=== PATIENT | male | born 1955 | race Caucasian/White ===

== ENCOUNTER 2019-02-13 15:17 | Inpatient (IN) | payer BC ==
[~2019-02-13] VITALS: Ht 180.3 cm; Wt 100.8 kg
[2019-02-13] VITALS (7 sets, daily range): BP systolic 114–141; BP diastolic 68–82
[~2019-02-13 15:17] MED LIST: AUGMENTIN 875 M1 TAB PO; DAYPRO600 M1 PO; MOTRIN800 MG PO; PROTONIX40 MG PO; REGLAN10 M1 PO; ROBAXIN750 MG PO; VICODIN 500 MG-1 TAB PO
[2019-02-13 15:41] LABS: BASO # 0.1 10*3/uL (0.0-0.1); BASO % 0.4 % (0.0-1.0); EOS # 0.3 10*3/uL (0.0-0.4); EOS % 2.4 % (1.0-4.0); HEMATOCRIT 47.4 % (42.0-52.0); HEMOGLOBIN 15.7 g/dl (14.0-18.0); LYMPH # 2.1 10*3/uL (1.3-4.4); LYMPH % 15.3 % (27.0-41.0); MEAN CELL VOLUME 91.9 fl (80.0-94.0); MEAN CORPUSCULAR HGB 30.4 pg (27.0-31.0); MEAN CORPUSCULAR HGB CONC 33.1 g/dl (33.0-37.0); MEAN PLATELET VOLUME 10.5 fl (9.6-12.3); MONO # 1.2 10*3/uL (0.1-1.0); MONO % 9.1 % (3.0-9.0); NEUT # 9.8 10*3/uL (2.3-7.9); NEUT % 72.4 % (47.0-73.0); PLATELET COUNT AUTOMATED 330 10*3/uL (130-400); RED BLOOD COUNT 5.16 10*6/uL (4.50-5.90); RED CELL DISTRI WIDTH 12.4 % (0-14.5); WHITE BLOOD COUNT 13.6 10*3/uL (4.8-10.8)
[2019-02-13 15:55] LABS: INTERNATIONAL NORM RATIO 0.9 (2.0-3.5)
[2019-02-13 16:00] LABS: ALBUMIN 3.3 gm/dl (3.1-4.5); ALKALINE PHOSPHATASE 101 U/L (45-117); BUN 8 mg/dl (7-24); CHLORIDE 110 mmol/L (98-107); CREATININE 0.71 mg/dL (0.70-1.30); POTASSIUM 3.6 mmol/L (3.5-5.1); SGOT/AST 16 IU/L (3-35); SGPT/ALT 38 U/L (12-78); SODIUM 140 mmol/L (136-145); TOTAL PROTEIN 6.8 gm/dL (6.4-8.2)
[2019-02-13 16:05] LABS: TROPONIN I < 0.015 ng/ml (<0.045)
[2019-02-13 16:56] LABS: BILIRUBIN NEGATIVE (NEGATIVE); BLOOD NEGATIVE (NEGATIVE); CLARITY CLEAR (CLEAR); COLOR YELLOW (YELLOW); GLUCOSE NEGATIVE (NEGATIVE); KETONE NEGATIVE (NEGATIVE); LEUKO ESTERASE NEGATIVE (NEGATIVE); NITRITE NEGATIVE (NEGATIVE); UROBILINOGEN 0.2 E.U./dl (0.2-1.0)
[2019-02-13 17:25] LABS: MUCOUS 1+
--- NOTE | 2019-02-13 18:55 | NUR ---
A 63, admitted to , under the services of SAVANNAH Prince DO with a diagnosis of ABDOMINAL PAIN, CHEST PAIN. Chief complaint is CHEST PAIN AND ABD PAIN. Patient arrived via bed from ER. Monitor applied. Initial assessment completed. Vital signs taken and recorded. SAVANNAH PRINCE DO notified of admission to the unit. Orders received. See assessment for past medical history, medications and allergies. Patient and/or family oriented to unit. [address] visitation policy reviewed. Clothing/patient valuable form completed. NURYS BURNETT R
--- NOTE | 2019-02-13 19:23 | NUR ---
CALLED DR. RIOC AWARE OF ADMISSION AND PT IN ROOM. MEDICATIONS UPDATED.
[2019-02-13] MEDS ORDERED: TYLENOL EXTRA500 M2 PO (19:24)
[2019-02-13] MEDS ORDERED: IBU-200200 MG PO (19:25)
--- NOTE | 2019-02-13 19:45 | NUR ---
DR. CAMPA REMINDED THAT ADMISSION ORDERS WERE NEEDED. GABRIELA SANCHEZ RN
--- NOTE | 2019-02-13 21:09 | NUR ---
ROUTINE CARDIAC CONSULT - LEFT MESSAGE ON ANSWERING SERVICE REGARDING CONSULT FOR DR. PAGE. GABRIELA SANCHEZ, RN
[2019-02-14] VITALS: BP 113/76
[2019-02-14 06:08] LABS: BASO # 0.1 10*3/uL (0.0-0.1); BASO % 0.5 % (0.0-1.0); EOS # 0.3 10*3/uL (0.0-0.4); EOS % 2.6 % (1.0-4.0); HEMATOCRIT 46.4 % (42.0-52.0); HEMOGLOBIN 15.3 g/dl (14.0-18.0); LYMPH # 1.7 10*3/uL (1.3-4.4); LYMPH % 17.5 % (27.0-41.0); MEAN CELL VOLUME 91.3 fl (80.0-94.0); MEAN CORPUSCULAR HGB 30.1 pg (27.0-31.0); MEAN PLATELET VOLUME 10.7 fl (9.6-12.3); MONO # 0.8 10*3/uL (0.1-1.0); MONO % 7.8 % (3.0-9.0); NEUT # 6.9 10*3/uL (2.3-7.9); NEUT % 71.2 % (47.0-73.0); PLATELET COUNT AUTOMATED 334 10*3/uL (130-400); RED BLOOD COUNT 5.08 10*6/uL (4.50-5.90); RED CELL DISTRI WIDTH 12.4 % (0-14.5); WHITE BLOOD COUNT 9.7 10*3/uL (4.8-10.8)
[2019-02-14 06:35] LABS: BUN 9 mg/dl (7-24); CHLORIDE 108 mmol/L (98-107); CHOLESTEROL 164 mg/dL (<200); FREE T4 0.83 ng/dl (0.76-1.46); HDL CHOLESTEROL 28 mg/dl (40-60); LDL CHOLESTEROL 86 mg/dL (9-159); PHOSPHOROUS 2.8 mg/dL (2.5-4.9); POTASSIUM 3.5 mmol/L (3.5-5.1); SODIUM 142 mmol/L (136-145); TRIGLYCERIDES 249 mg/dl (<150); VLDL CHOLESTEROL 50 mg/dL (6-40)
--- NOTE | 2019-02-14 06:35 | NUR ---
PER DR. CAMPA, PT CAN HAVE REGULAR DIET AFTER STRESS TEST.
[2019-02-14 08:11] LABS: VITAMIN D, 25-HYDROXY 6.3 ng/mL (30-100)
--- NOTE | 2019-02-14 09:00 | NUR ---
Improvement Specialist in to talk to patient. Patient states lives at home with brother. There are few steps in the home. Physician: none at present [facility]acy: [facility] health services: none Patient's level of ADLs: INDEPENDENT Patient has working utilities: all working DME: none Follow-up physician's appointment after d/c: will be made by hospitalist nurse director upon discharge Does patient want to access PORTAL?: no Discharge plan discussed with patient, he states he lives at home with brother, he is independent in adls and ambulation, works, drives, he states he will return home when medically stable and denies any home needs, patient stated he doesn't have a doctor at this time and will decide who he would like to follow up with. BLAIR ROSALES
--- NOTE | 2019-02-14 09:40 | NUR ---
PT OFF OF FLOOR AT THIS TIME FOR STRESS TEST.
--- NOTE | 2019-02-14 10:05 | NUR ---
DR FLOWERS ASKS THIS NURSE TO CALL [facility] AND REQUEST FOR NURSES TO NOT FEED PATIENT AFTER STRESS TEST. PHYSICIAN ALSO REQUESTS TO BE CALLED WHEN PATIENT RETURNS TO FLOOR.
--- NOTE | 2019-02-14 10:22 | NUR ---
WILL CATCH PATIENT UP ON AM MEDICATIONS ONCE HE RETURNS TO FLOOR FROM STRESS TEST.
--- NOTE | 2019-02-14 10:39 | NUR ---
[facility] CALLS THIS NURSE AND STATES THAT PATIENT IS C/O SEVERE ABDOMINAL PAIN. CARDIAC NURSE REQUESTS MEDICATION FOR PATIENT'S PAIN. MORPHINE 2 MG TAKEN DOWN TO 1ST FLOOR AND ADMINISTERED VIA IV TO PATIENT. UPON ARRIVAL TO [facility], PATIENT IS FOUND TO BE VOMITING CLEAR EMESIS INTO AN EMESIS BAG. ZOFRAN 4 MG VIA IV IS ALSO ADMINISTERED AT THIS TIME TO PATIENT. WILL MONITOR FOR EFFECTIVENESS. PT SITTING UP IN CHAIR WITH CARDIAC NURSES. NURSES STATE THAT THEY WILL MONITOR PATIENT.
--- NOTE | 2019-02-14 10:44 | NUR ---
INFORMED CONSENT SIGNED FOR LEXISCAN STRESS TEST WITH DR. BUSH. RESTING EKG NSR HR 103. BP 130/82. PULSE OX 98% AND LUNGS CLEAR. COMPLETED ONE MINUTE OF LEXISCAN PROTOCOL RECEIVING LEXISCAN 0.4MG IV OVER 10 SEC[address]DS[address] NO ARRHYTHMIAS OR ST CHANGES NOTED. PT C/O NAUSEA, CHEST TIGHTNESS AND HAD A 150CC CLEAR EMESIS. LAST RECOVERY HR 132, BP 140/58. ZOFRAN AND MORPHONE ADMINISTERED BY FLOOR RN. WAITING NUCLEAR SCANNING IN STABLE CONDITION.
--- NOTE | 2019-02-14 12:06 | NUR ---
NOTIFIED DR ROOT, WORKING WITH DR FLOWERS, THAT PT HAS RETURNED TO FLOOR.
--- NOTE | 2019-02-14 13:51 | NUR ---
NOTIFIED DR GALVAN OF CONSULT. DR GALVAN MADE AWARE OF ABDOMEN CT RESULTS AND THAT PT IS CURRENTLY HAVING ULTRASOUND DOPPLER ABDOMEN COMPLETE AT THIS TIME. PHYSICIAN STATES THAT HE WOULD LIKE CALL BACK WHEN ULTRASOUND RESULTS ARE AVAILABLE. WILL NOTIFY PATIENT.
--- NOTE | 2019-02-14 15:04 | NUR ---
DR GALVAN NOTIFIED OF ABDOMINAL ULTRASOUND RESULTS. NEW ORDER RECEIVED FOR EGD TODAY WITH DR GALVAN. WILL NOTIFY PATIENT.
--- NOTE | 2019-02-14 15:07 | NUR ---
PT GIVEN MORPHINE 2MG IV FOR PAIN TO ABDOMEN. WILL MONITOR FOR EFFECTIVENESS. PT LYING IN BED, CALL LIGHT IN REACH.
[2019-02-14 16:00] VITALS: BP 125/80
[2019-02-14 18:00] VITALS: BP 102/61
[2019-02-14 18:15] VITALS: BP 104/61
[2019-02-14 18:30] VITALS: BP 111/64
[2019-02-14 20:00] VITALS: BP 114/81
--- NOTE | 2019-02-14 20:16 | NUR ---
PT. GIVEN MORPHINE ORDERED FOR ABD PAIN AT 1950, CURRENTLY SLEEPING, MORPHINE EFFECTIVE FOR PAIN.
[2019-02-15] VITALS: BP 109/76
--- NOTE | 2019-02-15 00:32 | NUR ---
PT. GIVEN MORPHINE ORDERED FOR ABD PAIN.
--- NOTE | 2019-02-15 01:21 | NUR ---
PT. SLEEPING, MORPHINE EFFECTIVE FOR PAIN.
--- NOTE | 2019-02-15 05:12 | NUR ---
MORPHINE GIVEN FOR ABD PAIN ORDERED PER PT REQUEST.
--- NOTE | 2019-02-15 06:21 | NUR ---
PT. STATED MORPHINE EFFECTIVE FOR PAIN.
[2019-02-15 08:00] VITALS: BP 109/67
--- NOTE | 2019-02-15 09:00 | NUR ---
case management visits with patient, he states he will return home when medically stable and will be returning to work, no home needs at this time
--- NOTE | 2019-02-15 11:43 | NUR ---
Another Multi-Disciplinary Team meeting was held on 02/15/19, for the purpose of discharge planning. The patient was referred to the following services for follow-up: patient will return home when finished treating stomach ulcers BLAIR ROSALES
[2019-02-15 12:00] VITALS: BP 121/76
[2019-02-15 20:00] VITALS: BP 107/64
[2019-02-16] VITALS: BP 99/74
--- NOTE | 2019-02-16 01:27 | NUR ---
PRN NORCO GIVEN FOR COMPLAINTS OF PAIN IN ABD RATED A 5/10. WILL MONITOR FOR EFFECTIVENESS. CONTINUE TO MONITOR THE PT.
--- NOTE | 2019-02-16 02:20 | NUR ---
RE-EVALAUTED AT THIS TIME. PT REPORTS PRN NORCO EFFECTIVE. CONTINUE TO MONITOR THE PT.
[2019-02-16 08:00] VITALS: BP 107/72
--- NOTE | 2019-02-16 09:00 | NUR ---
case management visits with patient, he states he could possibly be discharged to home today, patient denies any home needs
[2019-02-16 11:55] VITALS: BP 125/70
[2019-02-16] MEDS ORDERED: PANTOPRAZOLE SO40 MG PO (12:01)
[2019-02-16] MEDS ORDERED: Vitamin D PO (12:01)
[2019-02-16] MEDS ORDERED: Carafate1 GM PO (12:01)
--- NOTE | 2019-02-16 14:40 | NUR ---
Discharge instructions reviewed with patient/family. Patient receptive and verbalizes understanding. Follow-up care arranged. Written instructions given to patient/family. AIME LOMBARDO
== END 2019-02-16 14:40 | disposition home or self-care (01) | DRG 384 ==
LOC: ED 15:17 → 4E 18:24 → EDHOLD 18:24 → 4E 18:46
PROVIDERS: Emergency Medicine; Internal Medicine; ADMIT Internal Medicine
PROC: 0DB98ZX Excision of Duodenum, Via Natural or Artificial Opening Endoscopic, Diagnostic (ICD-10-PCS; principal; 2019-02-14)
PROC: 0DB48ZX Excision of Esophagogastric Junction, Via Natural or Artificial Opening Endoscopic, Diagnostic (ICD-10-PCS; principal; 2019-02-14)
PROC: 4A02XM4 Measurement of Cardiac Total Activity, External Approach (ICD-10-PCS; principal; 2019-02-14)
PROC: 0DB68ZX Excision of Stomach, Via Natural or Artificial Opening Endoscopic, Diagnostic (ICD-10-PCS; principal; 2019-02-14)
PROC: 3E033HZ Introduction of Radioactive Substance into Peripheral Vein, Percutaneous Approach (ICD-10-PCS; principal; 2019-02-14)
DX: K26.9 Duodenal ulcer, unspecified as acute or chronic, without hemorrhage or perforation (principal); K80.20 Calculus of gallbladder without cholecystitis without obstruction; K29.00 Acute gastritis without bleeding; K28.9 Gastrojejunal ulcer, unspecified as acute or chronic, without hemorrhage or perforation; E78.1 Pure hyperglyceridemia; E11.65 Type 2 diabetes mellitus with hyperglycemia; E55.9 Vitamin D deficiency, unspecified; E87.8 Other disorders of electrolyte and fluid balance, not elsewhere classified; R19.7 Diarrhea, unspecified; K21.9 Gastro-esophageal reflux disease without esophagitis; K76.0 Fatty (change of) liver, not elsewhere classified; K29.80 Duodenitis without bleeding; Z91.018 Allergy to other foods; Z91.040 Latex allergy status; Z82.49 Family history of ischemic heart disease and other diseases of the circulatory system; Z79.899 Other long term (current) drug therapy

== ENCOUNTER → 2019-02-24 | Outpatient (CLI) | payer BC ==
[~2019-02-24] MED LIST changes: +Carafate1 GM PO; +IBU-200200 MG PO; +PANTOPRAZOLE SO40 MG PO; +TYLENOL EXTRA500 M2 PO; +Vitamin D PO
== END | disposition home or self-care (01) ==
LOC: RESCLI 01:11
DX: Z12.11 Encounter for screening for malignant neoplasm of colon (principal); K21.9 Gastro-esophageal reflux disease without esophagitis; K25.7 Chronic gastric ulcer without hemorrhage or perforation; E78.5 Hyperlipidemia, unspecified; E66.09 Other obesity due to excess calories; E11.9 Type 2 diabetes mellitus without complications; E55.9 Vitamin D deficiency, unspecified; Z79.899 Other long term (current) drug therapy; Z88.8 Allergy status to other drugs, medicaments and biological substances

== ENCOUNTER → 2019-04-25 | Outpatient (CLI) | payer BC | END | disposition home or self-care (01) | LOC: LAB 08:32 | DX: Z12.5 Encounter for screening for malignant neoplasm of prostate (principal); E11.9 Type 2 diabetes mellitus without complications ==

== ENCOUNTER → 2019-05-06 | Outpatient (CLI) | payer BC | END | disposition home or self-care (01) | LOC: RESCLI 08:39 | DX: M25.562 Pain in left knee (principal); K21.9 Gastro-esophageal reflux disease without esophagitis; K25.7 Chronic gastric ulcer without hemorrhage or perforation; E78.5 Hyperlipidemia, unspecified; E66.09 Other obesity due to excess calories; E11.9 Type 2 diabetes mellitus without complications; E55.9 Vitamin D deficiency, unspecified; G89.29 Other chronic pain; Z79.899 Other long term (current) drug therapy; Z87.891 Personal history of nicotine dependence ==

== ENCOUNTER → 2020-08-10 | Outpatient (CLI) | payer BC ==
[2020-08-10 10:07] LABS: BASO # 0.1 10*3/uL (0.0-0.1); BASO % 0.6 % (0.0-1.0); EOS # 0.3 10*3/uL (0.0-0.4); EOS % 3.5 % (1.0-4.0); HEMATOCRIT 43.4 % (42.0-52.0); LYMPH # 1.7 10*3/uL (1.3-4.4); LYMPH % 20.7 % (27.0-41.0); MEAN CELL VOLUME 92.9 fl (80.0-94.0); MEAN CORPUSCULAR HGB 29.6 pg (27.0-31.0); MEAN CORPUSCULAR HGB CONC 31.8 g/dl (33.0-37.0); MEAN PLATELET VOLUME 10.9 fl (9.6-12.3); MONO # 0.8 10*3/uL (0.1-1.0); MONO % 10.4 % (3.0-9.0); NEUT # 5.1 10*3/uL (2.3-7.9); NEUT % 63.7 % (47.0-73.0); PLATELET COUNT AUTOMATED 296 10*3/uL (130-400); RED BLOOD COUNT 4.67 10*6/uL (4.50-5.90); RED CELL DISTRI WIDTH 12.8 % (0-14.5)
[2020-08-10 10:38] LABS: ALBUMIN 3.3 gm/dl (3.1-4.5); ALKALINE PHOSPHATASE 98 U/L (45-117); BUN 8 mg/dl (7-24); CHLORIDE 109 mmol/L (98-107); CHOLESTEROL 127 mg/dL (<200); CREATININE 0.74 mg/dL (0.70-1.30); HDL CHOLESTEROL 33 mg/dl (40-60); LDL CHOLESTEROL 54 mg/dL (9-159); POTASSIUM 3.8 mmol/L (3.5-5.1); SGOT/AST 24 IU/L (3-35); SGPT/ALT 41 U/L (12-78); SODIUM 141 mmol/L (136-145); TOTAL PROTEIN 6.6 gm/dL (6.4-8.2); TRIGLYCERIDES 200 mg/dl (<150); VLDL CHOLESTEROL 40 mg/dL (6-40)
== END | disposition home or self-care (01) ==
LOC: RESCLI 00:56
PROVIDERS: Internal Medicine; ATTEND Family Medicine
DX: E11.65 Type 2 diabetes mellitus with hyperglycemia (principal); E78.5 Hyperlipidemia, unspecified; B35.1 Tinea unguium; D17.22 Benign lipomatous neoplasm of skin and subcutaneous tissue of left arm; I10 Essential (primary) hypertension; Z87.11 Personal history of peptic ulcer disease; Z68.35 Body mass index [BMI] 35.0-35.9, adult; Z79.84 Long term (current) use of oral hypoglycemic drugs; Z79.899 Other long term (current) drug therapy

== ENCOUNTER 2020-09-03 19:22 | Inpatient (IN) | payer BC ==
[~2020-09-03] VITALS: Ht 180.3 cm; Wt 113.4 kg
[2020-09-03 20:10] VITALS: BP 146/95
[2020-09-03 20:51] LABS: HEMATOCRIT 51.5 % (42.0-52.0); MEAN CELL VOLUME 87.7 fl (80.0-94.0); MEAN CORPUSCULAR HGB 29.3 pg (27.0-31.0); MEAN CORPUSCULAR HGB CONC 33.4 g/dl (33.0-37.0); MEAN PLATELET VOLUME 10.5 fl (9.6-12.3); PLATELET COUNT AUTOMATED 472 10*3/uL (130-400); RED BLOOD COUNT 5.87 10*6/uL (4.50-5.90); RED CELL DISTRI WIDTH 12.9 % (0-14.5); WHITE BLOOD COUNT 23.6 10*3/uL (4.8-10.8)
[2020-09-03 21:04] LABS: ALBUMIN 3.5 gm/dl (3.1-4.5); ALKALINE PHOSPHATASE 109 U/L (45-117); BUN 19 mg/dl (7-24); CHLORIDE 103 mmol/L (98-107); CREATININE 0.94 mg/dL (0.70-1.30); LIPASE 78 U/L (73-393); POTASSIUM 3.2 mmol/L (3.5-5.1); SGOT/AST 9 IU/L (3-35); SGPT/ALT 21 U/L (12-78); SODIUM 135 mmol/L (136-145); TOTAL PROTEIN 7.2 gm/dL (6.4-8.2)
[2020-09-03 21:14] LABS: PLATELET SUFFICIENCY HIGH (NORMAL); TOTAL CELLS COUNTED 100 #CELLS
[2020-09-04 00:06] LABS: BILIRUBIN Negative (Negative); BLOOD Negative (Negative); CLARITY Clear (Clear); COLOR Yellow (Yellow); GLUCOSE Negative (Negative); KETONE Negative (Negative); LEUKO ESTERASE Negative (Negative); NITRITE Negative (Negative); PH 5.5 (4.5-8.0); SPECIFIC GRAVITY >= 1.030 (1.001-1.030); UROBILINOGEN 0.2 E.U./dl (0.0-1.0)
[2020-09-04 00:33] LABS: RBC 0-2 rbc/hpf (0-2); WBC 0-2 wbc/hpf (0-5)
[2020-09-04 03:30] VITALS: BP 142/86
[2020-09-04 05:24] LABS: ALBUMIN 2.7 gm/dl (3.1-4.5); ALKALINE PHOSPHATASE 83 U/L (45-117); BUN 16 mg/dl (7-24); CHLORIDE 103 mmol/L (98-107); CHOLESTEROL 101 mg/dL (<200); CREATININE 0.88 mg/dL (0.70-1.30); FREE T4 0.86 ng/dl (0.76-1.46); LDL CHOLESTEROL 34 mg/dL (9-159); SGOT/AST 9 IU/L (3-35); SGPT/ALT 16 U/L (12-78); SODIUM 135 mmol/L (136-145); TOTAL PROTEIN 5.7 gm/dL (6.4-8.2); TRIGLYCERIDES 194 mg/dl (<150)
[2020-09-04 05:31] VITALS: BP 146/80
[2020-09-04 05:33] LABS: POTASSIUM 4.7 mmol/L (3.5-5.1)
[2020-09-04 06:13] LABS: ACT PARTIAL THROMBO TIME 27.1 SECONDS (20.0-32.1)
[2020-09-04 06:31] LABS: HEMATOCRIT 46.8 % (42.0-52.0); MEAN CORPUSCULAR HGB 30.1 pg (27.0-31.0); MEAN CORPUSCULAR HGB CONC 32.7 g/dl (33.0-37.0); RED BLOOD COUNT 5.09 10*6/uL (4.50-5.90); RED CELL DISTRI WIDTH 13.1 % (0-14.5); WHITE BLOOD COUNT 16.8 10*3/uL (4.8-10.8)
[2020-09-04 06:34] LABS: MEAN CELL VOLUME 91.9 fl (80.0-94.0); PLATELET COUNT AUTOMATED 324 10*3/uL (130-400)
[2020-09-04 07:01] LABS: BURR CELLS FEW; PLATELET SUFFICIENCY NORMAL (NORMAL); POLYCHROMASIA SLIGHT; TOTAL CELLS COUNTED 100 #CELLS
[2020-09-04 08:16] LABS: VITAMIN D, 25-HYDROXY 24.5 ng/mL (30-100)
[2020-09-04 11:08] VITALS: BP 120/73
[2020-09-04] MEDS ORDERED: METFORMIN850 MG PO (15:34)
[2020-09-04] MEDS ORDERED: LIPITOR40 MG PO (15:34)
[2020-09-04] MEDS ORDERED: LIPITOR10 MG PO (17:24)
[2020-09-04] MEDS ORDERED: GLUCOPHAGE500 M1 PO (17:25)
[2020-09-04 18:11] VITALS: BP 112/41
[2020-09-05] VITALS (11 sets, daily range): BP systolic 112–153; BP diastolic 63–78
[2020-09-05 06:04] LABS: ALBUMIN 2.6 gm/dl (3.1-4.5); ALKALINE PHOSPHATASE 68 U/L (45-117); BUN 11 mg/dl (7-24); CHLORIDE 109 mmol/L (98-107); CREATININE 0.73 mg/dL (0.70-1.30); SGOT/AST 7 IU/L (3-35); SGPT/ALT 13 U/L (12-78); SODIUM 141 mmol/L (136-145); TOTAL PROTEIN 5.5 gm/dL (6.4-8.2)
[2020-09-05 06:09] LABS: POTASSIUM 3.6 mmol/L (3.5-5.1)
[2020-09-05 06:11] LABS: BASO # 0.1 10*3/uL (0.0-0.1); BASO % 0.4 % (0.0-1.0); EOS # 0.1 10*3/uL (0.0-0.4); EOS % 1.1 % (1.0-4.0); HEMATOCRIT 40.6 % (42.0-52.0); MEAN CELL VOLUME 90.6 fl (80.0-94.0); MEAN CORPUSCULAR HGB 29.7 pg (27.0-31.0); MEAN CORPUSCULAR HGB CONC 32.8 g/dl (33.0-37.0); MEAN PLATELET VOLUME 10.7 fl (9.6-12.3); MONO # 1.1 10*3/uL (0.1-1.0); MONO % 9.1 % (3.0-9.0); NEUT # 8.4 10*3/uL (2.3-7.9); NEUT % 71.8 % (47.0-73.0); PLATELET COUNT AUTOMATED 331 10*3/uL (130-400); RED BLOOD COUNT 4.48 10*6/uL (4.50-5.90); RED CELL DISTRI WIDTH 13.2 % (0-14.5); WHITE BLOOD COUNT 11.7 10*3/uL (4.8-10.8)
[2020-09-06] VITALS: BP 113/39
[2020-09-06 08:00] VITALS: BP 128/70
[2020-09-06] MEDS ORDERED: ZOFRAN4 MG PO (11:27)
[2020-09-06] MEDS ORDERED: DULCOLAX STOOL100 M1 PO (11:27)
[2020-09-06] MEDS ORDERED: PERCOCET 5-3251 EACH PO (11:28)
== END 2020-09-06 11:20 | disposition home or self-care (01) | DRG 417 ==
LOC: ED 19:22 → EDHOLD 09-04 00:55 → 5E 09-04 00:55
PROVIDERS: Emergency Medicine; Hospitalist; Internal Medicine; ADMIT Student in an Organized Health Care Education/Training Program; ATTEND Student in an Organized Health Care Education/Training Program
PROC: 0FT44ZZ Resection of Gallbladder, Percutaneous Endoscopic Approach (ICD-10-PCS; principal; 2020-09-05)
DX: K80.00 Calculus of gallbladder with acute cholecystitis without obstruction (principal); E43 Unspecified severe protein-calorie malnutrition; E87.1 Hypo-osmolality and hyponatremia; E87.2 Acidosis; K26.9 Duodenal ulcer, unspecified as acute or chronic, without hemorrhage or perforation; E11.65 Type 2 diabetes mellitus with hyperglycemia; R19.7 Diarrhea, unspecified; D72.829 Elevated white blood cell count, unspecified; R79.82 Elevated C-reactive protein (CRP); D47.3 Essential (hemorrhagic) thrombocythemia; E87.6 Hypokalemia; E78.1 Pure hyperglyceridemia; E55.9 Vitamin D deficiency, unspecified; E66.9 Obesity, unspecified; K21.00 Gastro-esophageal reflux disease with esophagitis, without bleeding; Z91.040 Latex allergy status; Z82.49 Family history of ischemic heart disease and other diseases of the circulatory system; Z83.3 Family history of diabetes mellitus; Z84.89 Family history of other specified conditions; Z68.34 Body mass index [BMI] 34.0-34.9, adult

== ENCOUNTER → 2020-09-12 | Outpatient (CLI) | payer BC ==
[~2020-09-12] MED LIST changes: +DULCOLAX STOOL100 M1 PO; +GLUCOPHAGE500 M1 PO; +LIPITOR10 MG PO; +LIPITOR40 MG PO; +METFORMIN850 MG PO; +PERCOCET 5-3251 EACH PO; +ZOFRAN4 MG PO
== END | disposition home or self-care (01) ==
LOC: RESCLI 01:41
PROVIDERS: ATTEND Student in an Organized Health Care Education/Training Program
DX: E11.65 Type 2 diabetes mellitus with hyperglycemia (principal); E55.9 Vitamin D deficiency, unspecified; E78.5 Hyperlipidemia, unspecified; B35.1 Tinea unguium; R60.0 Localized edema; Z90.49 Acquired absence of other specified parts of digestive tract; Z87.11 Personal history of peptic ulcer disease; Z79.84 Long term (current) use of oral hypoglycemic drugs; Z79.899 Other long term (current) drug therapy; Z87.891 Personal history of nicotine dependence

== ENCOUNTER → 2021-02-04 | Outpatient (CLI) | payer BC | END | disposition home or self-care (01) | LOC: RESCLI 06:42 | PROVIDERS: ATTEND Internal Medicine Nephrology | DX: E78.5 Hyperlipidemia, unspecified (principal); E11.9 Type 2 diabetes mellitus without complications; K21.9 Gastro-esophageal reflux disease without esophagitis; K25.7 Chronic gastric ulcer without hemorrhage or perforation; Z12.11 Encounter for screening for malignant neoplasm of colon; M17.12 Unilateral primary osteoarthritis, left knee; B35.1 Tinea unguium; E55.9 Vitamin D deficiency, unspecified; Z90.49 Acquired absence of other specified parts of digestive tract; Z98.890 Other specified postprocedural states; Z79.84 Long term (current) use of oral hypoglycemic drugs; Z79.899 Other long term (current) drug therapy ==

== ENCOUNTER → 2021-08-28 | Outpatient (CLI) | payer BC ==
[2021-08-28 08:05] LABS: BASO # 0.1 10*3/uL (0.0-0.1); BASO % 0.8 % (0.0-1.0); EOS # 0.6 10*3/uL (0.0-0.4); EOS % 7.1 % (1.0-4.0); HEMATOCRIT 42.9 % (42.0-52.0); LYMPH # 1.7 10*3/uL (1.3-4.4); LYMPH % 20.5 % (27.0-41.0); MEAN CELL VOLUME 89.7 fl (80.0-94.0); MEAN CORPUSCULAR HGB 29.7 pg (27.0-31.0); MEAN CORPUSCULAR HGB CONC 33.1 g/dl (33.0-37.0); MEAN PLATELET VOLUME 10.6 fl (9.6-12.3); MONO # 0.7 10*3/uL (0.1-1.0); MONO % 7.8 % (3.0-9.0); NEUT # 5.3 10*3/uL (2.3-7.9); NEUT % 63.3 % (47.0-73.0); PLATELET COUNT AUTOMATED 274 10*3/uL (130-400); RED BLOOD COUNT 4.78 10*6/uL (4.50-5.90); RED CELL DISTRI WIDTH 12.7 % (0-14.5); WHITE BLOOD COUNT 8.3 10*3/uL (4.8-10.8)
[2021-08-28 08:18] LABS: BUN 18 mg/dl (7-24); CHLORIDE 112 mmol/L (98-107); CREATININE 0.84 mg/dL (0.70-1.30); POTASSIUM 4.4 mmol/L (3.5-5.1); SODIUM 142 mmol/L (136-145)
[2021-08-29 10:08] LABS: CREATININE,URINE 135.9 mg/dL (Not Estab.); MICRO ALBUMIN/CRE RATIO <2 (0-29)
== END | disposition home or self-care (01) ==
LOC: LAB 07:45
PROVIDERS: ATTEND Internal Medicine
DX: E78.5 Hyperlipidemia, unspecified (principal); E11.9 Type 2 diabetes mellitus without complications

== ENCOUNTER → 2021-10-07 | Outpatient (CLI) | payer BC | LOC: RESCLI 07:44 | PROVIDERS: ATTEND Internal Medicine Nephrology | DX: E78.5 Hyperlipidemia, unspecified (principal); E11.9 Type 2 diabetes mellitus without complications; K21.9 Gastro-esophageal reflux disease without esophagitis; K25.7 Chronic gastric ulcer without hemorrhage or perforation; Z12.11 Encounter for screening for malignant neoplasm of colon; M17.12 Unilateral primary osteoarthritis, left knee; E55.9 Vitamin D deficiency, unspecified; Z79.2 Long term (current) use of antibiotics; Z79.899 Other long term (current) drug therapy ==

== ENCOUNTER → 2022-01-10 | Outpatient (CLI) | payer BC | END | disposition home or self-care (01) | LOC: RESCLI 13:48 | PROVIDERS: ATTEND Student in an Organized Health Care Education/Training Program | DX: E11.65 Type 2 diabetes mellitus with hyperglycemia (principal); M17.9 Osteoarthritis of knee, unspecified; E11.21 Type 2 diabetes mellitus with diabetic nephropathy; F41.9 Anxiety disorder, unspecified; E78.5 Hyperlipidemia, unspecified; K21.9 Gastro-esophageal reflux disease without esophagitis; Z90.49 Acquired absence of other specified parts of digestive tract; Z79.899 Other long term (current) drug therapy; Z79.01 Long term (current) use of anticoagulants; Z87.891 Personal history of nicotine dependence ==

== ENCOUNTER → 2022-01-24 | Outpatient (CLI) | payer BC ==
[2022-01-24 08:20] LABS: BASO # 0.1 10*3/uL (0.0-0.1); BASO % 0.9 % (0.0-1.0); EOS # 0.4 10*3/uL (0.0-0.4); EOS % 3.3 % (1.0-4.0); HEMATOCRIT 43.8 % (42.0-52.0); LYMPH # 2.2 10*3/uL (1.3-4.4); MEAN CELL VOLUME 92.8 fl (80.0-94.0); MEAN CORPUSCULAR HGB 30.5 pg (27.0-31.0); MEAN CORPUSCULAR HGB CONC 32.9 g/dl (33.0-37.0); MEAN PLATELET VOLUME 10.5 fl (9.6-12.3); MONO # 0.9 10*3/uL (0.1-1.0); MONO % 8.9 % (3.0-9.0); NEUT # 6.9 10*3/uL (2.3-7.9); NEUT % 65.1 % (47.0-73.0); PLATELET COUNT AUTOMATED 301 10*3/uL (130-400); RED BLOOD COUNT 4.72 10*6/uL (4.50-5.90); WHITE BLOOD COUNT 10.5 10*3/uL (4.8-10.8)
[2022-01-24 08:56] LABS: ALKALINE PHOSPHATASE 94 U/L (45-117); BUN 20 mg/dl (7-24); CHLORIDE 111 mmol/L (98-107); CHOLESTEROL 117 mg/dL (<200); CREATININE 1.15 mg/dL (0.70-1.30); LDL CHOLESTEROL 46 mg/dL (9-159); POTASSIUM 4.8 mmol/L (3.5-5.1); SGOT/AST 19 IU/L (3-35); SGPT/ALT 36 U/L (12-78); SODIUM 144 mmol/L (136-145); TOTAL PROTEIN 6.9 gm/dL (6.4-8.2); TRIGLYCERIDES 188 mg/dl (<150)
== END | disposition home or self-care (01) ==
LOC: LAB 07:58
PROVIDERS: Student in an Organized Health Care Education/Training Program; ATTEND Internal Medicine
DX: E11.65 Type 2 diabetes mellitus with hyperglycemia (principal)

== ENCOUNTER → 2022-03-07 | Outpatient (CLI) | payer BC | END | disposition home or self-care (01) | LOC: RESCLI 03-05 07:32 | PROVIDERS: ATTEND Internal Medicine | DX: F41.9 Anxiety disorder, unspecified (principal); E55.9 Vitamin D deficiency, unspecified; M17.9 Osteoarthritis of knee, unspecified; E78.5 Hyperlipidemia, unspecified; K21.9 Gastro-esophageal reflux disease without esophagitis; E11.65 Type 2 diabetes mellitus with hyperglycemia; Z87.891 Personal history of nicotine dependence; Z79.84 Long term (current) use of oral hypoglycemic drugs; Z79.899 Other long term (current) drug therapy ==

== ENCOUNTER 2022-05-05 07:48 | Emergency (ER) | payer BC ==
[~2022-05-05] VITALS: Ht 180.3 cm; Wt 112.0 kg
[2022-05-05] MEDS ORDERED: PREDNISONE50 MG PO (08:53)
== END 2022-05-05 08:57 | disposition home or self-care (01) ==
LOC: ED 07:48
DX: M54.32 Sciatica, left side (principal); Z90.49 Acquired absence of other specified parts of digestive tract

== ENCOUNTER → 2022-07-04 | Outpatient (CLI) | payer BC ==
[~2022-07-04] MED LIST changes: +PREDNISONE50 MG PO
== END | disposition home or self-care (01) ==
LOC: RESCLI 01:14
PROVIDERS: ATTEND Family Medicine
DX: E11.65 Type 2 diabetes mellitus with hyperglycemia (principal); E55.9 Vitamin D deficiency, unspecified; E78.5 Hyperlipidemia, unspecified; M17.9 Osteoarthritis of knee, unspecified; K21.9 Gastro-esophageal reflux disease without esophagitis; F41.9 Anxiety disorder, unspecified; Z87.891 Personal history of nicotine dependence; Z82.49 Family history of ischemic heart disease and other diseases of the circulatory system; Z79.84 Long term (current) use of oral hypoglycemic drugs; Z79.899 Other long term (current) drug therapy

== ENCOUNTER → 2022-07-18 | Outpatient (CLI) | payer BC ==
[2022-07-18 08:54] LABS: CHOLESTEROL 97 mg/dL (<200); LDL CHOLESTEROL 27 mg/dL (9-159); TRIGLYCERIDES 222 mg/dl (<150)
== END | disposition home or self-care (01) ==
LOC: LAB 08:20
PROVIDERS: ATTEND Internal Medicine
DX: E78.5 Hyperlipidemia, unspecified (principal); E55.9 Vitamin D deficiency, unspecified; E11.65 Type 2 diabetes mellitus with hyperglycemia

== ENCOUNTER → 2022-11-07 | Outpatient (CLI) | payer BC | END | disposition home or self-care (01) | LOC: RESCLI 00:42 | PROVIDERS: ATTEND Internal Medicine | DX: E11.9 Type 2 diabetes mellitus without complications (principal) ==

== ENCOUNTER → 2023-06-05 | Outpatient (CLI) | payer BC | END | disposition home or self-care (01) | LOC: RESCLI 00:43 | PROVIDERS: ATTEND Internal Medicine | DX: E78.5 Hyperlipidemia, unspecified (principal); E11.65 Type 2 diabetes mellitus with hyperglycemia; K04.7 Periapical abscess without sinus; F41.9 Anxiety disorder, unspecified; J34.89 Other specified disorders of nose and nasal sinuses; E55.9 Vitamin D deficiency, unspecified; M17.9 Osteoarthritis of knee, unspecified; K21.9 Gastro-esophageal reflux disease without esophagitis; Z79.899 Other long term (current) drug therapy ==

== ENCOUNTER → 2023-07-31 | Outpatient (CLI) | payer BC, MEDICARE ==
[2023-07-31 14:59] LABS: CHOLESTEROL 111 mg/dL (<200); LDL CHOLESTEROL 21 mg/dL (9-159); TRIGLYCERIDES 316 mg/dl (<150)
== END | disposition home or self-care (01) ==
LOC: LAB 14:10
PROVIDERS: ATTEND Internal Medicine
DX: E11.65 Type 2 diabetes mellitus with hyperglycemia (principal); E78.5 Hyperlipidemia, unspecified

== ENCOUNTER → 2023-08-07 | Outpatient (CLI) | payer BC, MEDICARE | END | disposition home or self-care (01) | LOC: RESCLI 01:50 | PROVIDERS: ATTEND Internal Medicine | DX: E78.5 Hyperlipidemia, unspecified (principal); J34.89 Other specified disorders of nose and nasal sinuses; E55.9 Vitamin D deficiency, unspecified; M17.9 Osteoarthritis of knee, unspecified; K21.9 Gastro-esophageal reflux disease without esophagitis; E11.65 Type 2 diabetes mellitus with hyperglycemia; R53.83 Other fatigue; Z87.891 Personal history of nicotine dependence; Z98.890 Other specified postprocedural states; Z82.49 Family history of ischemic heart disease and other diseases of the circulatory system; Z79.899 Other long term (current) drug therapy ==

== ENCOUNTER → 2024-09-23 | Outpatient (CLI) | payer BC, MEDICARE ==
[2024-09-23 17:16] LABS: BASO # 0.1 10*3/uL (0.0-0.1); BASO % 0.7 % (0.0-1.0); EOS # 0.5 10*3/uL (0.0-0.4); EOS % 4.5 % (1.0-4.0); HEMATOCRIT 46.6 % (42.0-52.0); MEAN CORPUSCULAR HGB 29.5 pg (27.0-31.0); MEAN CORPUSCULAR HGB CONC 32.4 g/dl (33.0-37.0); MEAN PLATELET VOLUME 10.4 fl (9.6-12.3); MONO # 1.1 10*3/uL (0.1-1.0); MONO % 10.2 % (3.0-9.0); NEUT # 7.5 10*3/uL (2.3-7.9); NEUT % 69.8 % (47.0-73.0); PLATELET COUNT AUTOMATED 276 10*3/uL (130-400); RED BLOOD COUNT 5.12 10*6/uL (4.50-5.90); RED CELL DISTRI WIDTH 13.2 % (0-14.5); WHITE BLOOD COUNT 10.8 10*3/uL (4.8-10.8)
[2024-09-23 17:45] LABS: BUN 11 mg/dl (9-23); CHLORIDE 105 mmol/L (98-107); CHOLESTEROL 145 mg/dL (<200); LDL CHOLESTEROL 34 mg/dL (9-159); POTASSIUM 4.1 mmol/L (3.4-5.1); TRIGLYCERIDES 384 mg/dl (<150)
== END | disposition home or self-care (01) ==
LOC: LAB 01:09 → RESCLI 01:09
PROVIDERS: Student in an Organized Health Care Education/Training Program; ATTEND Internal Medicine
DX: E11.65 Type 2 diabetes mellitus with hyperglycemia (principal)